=== PATIENT | female | born 1960 | race African-American/Black ===

== ENCOUNTER 2017-05-11 17:05 | Emergency (ER) | payer MEDICAID ==
[~2017-05-11] VITALS: Ht 160 cm; Wt 79.0 kg
[2017-05-11] MEDS ORDERED: ALBUTEROL (0.083%) 2.5MG/3ML NEB HHN STA (18:21)
[2017-05-11 18:25] LABS: CLARITY URINE CLEAR (CLEAR); COLOR URINE YELLOW (YELLOW); KETONES URINE TRACE (NEGATIVE); LEUKOCYTE ESTERASE URINE NEGATIVE (NEGATIVE); NITRITE URINE NEGATIVE (NEGATIVE); OCCULT BLOOD URINE TRACE (NEGATIVE); PH URINE 5.5 (4.5-8.0); PROTEIN URINE NEGATIVE (NEGATIVE); SPECIFIC GRAVITY URINE 1.025 (1.005-1.030)
[2017-05-11 18:42] LABS: BASOPHILS % 0.5 % (0.0-2.0); EOSINOPHILS % 5.7 % (0.0-5.0); HEMATOCRIT. 43.7 % (36.0-48.0); HEMOGLOBIN. 14.8 g/dL (12.0-16.0); LYMPHOCYTES % 27.3 % (20.0-50.0); MEAN CORPUSCULAR HEMOGLOBIN 28.9 pg (28.0-32.0); MEAN CORPUSCULAR VOLUME 85.2 fL (81.0-99.0); MONOCYTES % 8.9 % (2.0-8.0); NEUTROPHILS % 57.6 % (40.0-76.0); PLATELET 269 x1000/uL (130-400); RED BLOOD CELL COUNT 5.13 mill/uL (4.2-5.4); RED CELL DISTRIBUTION WIDTH 13.8 % (11.6-14.6)
[2017-05-11 18:50] LABS: CHLORIDE 103 mEq/L (98-107); PARTIAL THROMBOPLASTIN TIME 26.6 sec (23.4-31.0); PROTHROMBIN TIME 10.7 sec (9.4-11.6)
[2017-05-11 18:52] LABS: CARBON DIOXIDE 31 mEq/L (21-32)
[2017-05-11 18:59] LABS: TROPONIN I < 0.02 ng/mL (0.00-0.04)
[2017-05-11 20:04] VITALS: BP 141/90
== END 2017-05-11 20:03 | disposition home or self-care (01) ==
LOC: ER 18:04 → CANBEDREQ 18:32 → ER 20:03
DX: J40 Bronchitis, not specified as acute or chronic (principal); E87.6 Hypokalemia; E86.0 Dehydration; I10 Essential (primary) hypertension; Z88.2 Allergy status to sulfonamides; Z91.14 Patient's other noncompliance with medication regimen
CPT/HCPCS: 36415; 71010; 80053; 81001; 83605; 83690; 83880; 84484; 85025; 85610; 85730; 87040; 87086; 93005; 94640; 99285; J7611; Z7610

== ENCOUNTER 2018-06-30 09:05 | Emergency (ER) | payer MEDICAID ==
[~2018-06-30] VITALS: Ht 162.6 cm; Wt 81.0 kg
[~2018-06-30 09:05] MED LIST: AMLO5TAB4 PO; ASCO500C15 PO; ATOR20TA PO; FLUT9.9S BOTHNSTRLS; HYDR25TA PO; LORA10TA7 PO; MELO-106 PO; MULT-1146 PO; RANI300T4 PO
[2018-06-30] MEDS ORDERED: ACETAMINOPHEN WITH CODEINE 300/30MG TABLET PO ONE (10:45)
[2018-06-30] MEDS ORDERED: METHOCARBAMOL 500MG TABLET PO ONE (10:45)
[2018-06-30] MEDS ORDERED: KETOROLAC 60MG/2ML VIAL IM ONE (11:45)
[2018-06-30] MEDS ORDERED: ONDANSETRON 4MG ODT PO ONE (11:45)
[2018-06-30 12:08] VITALS: BP 166/99
== END 2018-06-30 12:35 | disposition home or self-care (01) ==
LOC: ER 10:39
DX: S06.0X0A Concussion without loss of consciousness, initial encounter (principal); S13.8XXA Sprain of joints and ligaments of other parts of neck, initial encounter; I10 Essential (primary) hypertension; K21.9 Gastro-esophageal reflux disease without esophagitis; Z90.81 Acquired absence of spleen; Z88.2 Allergy status to sulfonamides; W01.0XXA Fall on same level from slipping, tripping and stumbling without subsequent striking against object, initial encounter; Y93.89 Activity, other specified; Y92.018 Other place in single-family (private) house as the place of occurrence of the external cause
CPT/HCPCS: 70450; 72125; 96372; 99284; J1885; Q0162; Z7610

== ENCOUNTER 2018-10-21 13:17 | Inpatient (IN) | payer MEDICAID ==
[~2018-10-21] VITALS: Ht 160 cm; Wt 79.8 kg
[2018-10-21] MEDS ORDERED: KETOROLAC 30MG/ML VIAL IV STA (14:36)
[2018-10-21] MEDS ORDERED: ONDANSETRON HCL 4MG/2ML INJ IV STA (14:36)
[2018-10-21] MEDS ORDERED: ACETAMINOPHEN 325MG TABLET PO STA (14:36)
[2018-10-21] MEDS ORDERED: SODIUM CHLORIDE 0.9% 1,000 ML IV ONE (14:36)
[2018-10-21 15:47] LABS: PROTHROMBIN TIME 10.3 sec (9.1-11.1)
[2018-10-21 15:48] LABS: CHLORIDE 107 mEq/L (98-107)
[2018-10-21 15:50] LABS: BASOPHILS % 0.3 % (0.0-2.0); EOSINOPHILS % 1.3 % (0.0-5.0); HEMATOCRIT. 40.6 % (36.0-48.0); HEMOGLOBIN. 13.6 g/dL (12.0-16.0); LYMPHOCYTES % 7.1 % (20.0-50.0); MEAN CORPUSCULAR HEMOGLOBIN 28.7 pg (28.0-32.0); MEAN CORPUSCULAR VOLUME 86.1 fL (81.0-99.0); MEAN PLATELET VOLUME 8.3 fl (7.4-10.4); MONOCYTES % 9.6 % (2.0-8.0); NEUTROPHILS % 81.7 % (40.0-76.0); PLATELET 340 x1000/uL (130-400); RED BLOOD CELL COUNT 4.72 mill/uL (4.2-5.4); RED CELL DISTRIBUTION WIDTH 13.8 % (11.6-14.6)
[2018-10-21 15:54] LABS: ETHANOL BLOOD < 10 mg/dL
[2018-10-21] MEDS ORDERED: LEVOFLOXACIN 750MG PREMIX 150 ML IV ONE (16:15)
[2018-10-21 17:10] LABS: PLATELET ESTIMATE NORMAL
[2018-10-21] MEDS ORDERED: IPRATROPIUM/ALBUTEROL 0.5-3(2.5)MG/3ML NEB INH PRN (20:45)
[2018-10-21] MEDS ORDERED: LORAZEPAM 0.5MG TABLET PO PRN (20:45)
[2018-10-21] MEDS ORDERED: DOCUSATE SODIUM 100MG CAPSULE PO PRN (20:45)
[2018-10-21] MEDS: HYDROCODONE/ACETAMINOPHEN 5/325MG TABLET PO PRN (21:18)
[2018-10-22] MEDS: HYDROCODONE/ACETAMINOPHEN 5/325MG TABLET PO PRN ×3 (03:48→15:01)
[2018-10-22] MEDS: ACETAMINOPHEN 325MG TABLET PO PRN ×2 (04:33→05:24)
[2018-10-22 06:43] LABS: HEMATOCRIT. 34.5 % (36.0-48.0); HEMOGLOBIN. 11.6 g/dL (12.0-16.0); MEAN CORPUSCULAR HEMOGLOBIN 28.8 pg (28.0-32.0); MEAN PLATELET VOLUME 7.6 fl (7.4-10.4); PLATELET 287 x1000/uL (130-400); RED BLOOD CELL COUNT 4.01 mill/uL (4.2-5.4); RED CELL DISTRIBUTION WIDTH 13.3 % (11.6-14.6)
[2018-10-22 06:54] LABS: CHLORIDE 110 mEq/L (98-107)
[2018-10-22 07:01] LABS: LDL CHOLESTEROL 104 mg/dL (5-100)
[2018-10-22 07:02] LABS: HDL CHOLESTEROL 40 mg/dL (40-59)
[2018-10-22 07:35] LABS: PLATELET ESTIMATE NORMAL
[2018-10-22] MEDS: CLONIDINE 0.1MG TABLET PO PRN (09:52)
[2018-10-22] MEDS ORDERED: BENZONATATE 100MG CAPSULE PO PRN (15:15)
[2018-10-22 16:57] VITALS: BP 144/78
[2018-10-22] MEDS ORDERED: CEFTRIAXONE 1 G PREMIX 50 ML IV SCH (18:00)
[2018-10-22] MEDS: AZITHROMYCIN 500 MG TABLET PO SCH (19:15)
[2018-10-22 20:00] VITALS: BP 146/86
[2018-10-22] MEDS: FLUTICASONE PROPIONATE 50MCG/SPRAY BOTTLE BOTHNSTRLS SCH (21:50)
[2018-10-23] VITALS: BP 145/81
[2018-10-23 05:31] VITALS: BP 157/80
[2018-10-23 07:58] VITALS: BP 148/88
[2018-10-23] MEDS: AZITHROMYCIN 500 MG TABLET PO SCH (08:21)
[2018-10-23] MEDS: FLUTICASONE PROPIONATE 50MCG/SPRAY BOTTLE BOTHNSTRLS SCH ×2 (08:21→20:03)
[2018-10-23] MEDS: HYDROCODONE/ACETAMINOPHEN 5/325MG TABLET PO PRN ×3 (08:21→20:03)
[2018-10-23 12:00] VITALS: BP 142/87
[2018-10-23] MEDS ORDERED: IBUPROFEN 600MG TABLET PO NR (12:30)
[2018-10-23 16:00] VITALS: BP 150/83
[2018-10-23] MEDS: CEFTRIAXONE 1 G PREMIX 50 ML IV SCH (18:32)
[2018-10-23] MEDS: ONDANSETRON HCL 4MG/2ML INJ IV PRN (19:05)
[2018-10-23 20:00] VITALS: BP 164/97
[2018-10-23] MEDS: CLONIDINE 0.1MG TABLET PO PRN (20:06)
[2018-10-24] VITALS: BP_SYST 110; BP_SYST 135; BP_DIAS 72; BP_DIAS 84
[2018-10-24] MEDS: HYDROCODONE/ACETAMINOPHEN 5/325MG TABLET PO PRN (02:10)
[2018-10-24 04:00] VITALS: BP 128/86
[2018-10-24] MEDS ORDERED: TRAMADOL 50MG TABLET PO PRN (07:15)
[2018-10-24] MEDS ORDERED: HYDROCODONE/APAP 7.5/325MG 1 TAB TABLET PO PRN (07:15)
[2018-10-24 08:00] VITALS: BP 160/99
[2018-10-24] MEDS: ONDANSETRON HCL 4MG/2ML INJ IV PRN (08:43)
[2018-10-24] MEDS: FLUTICASONE PROPIONATE 50MCG/SPRAY BOTTLE BOTHNSTRLS SCH ×2 (08:43→20:50)
[2018-10-24] MEDS: AZITHROMYCIN 500 MG TABLET PO SCH (08:43)
[2018-10-24 12:00] VITALS: BP 139/89
[2018-10-24] MEDS: HYDROCHLOROTHIAZIDE 25MG TABLET PO SCH (16:00)
[2018-10-24] MEDS ORDERED: KETOROLAC 30MG/ML VIAL IV NR (16:00)
[2018-10-24] MEDS ORDERED: METOCLOPRAMIDE HCL 10MG/2ML VIAL IV NR (16:00)
[2018-10-24 16:24] VITALS: BP 153/93
[2018-10-24] MEDS: LORATADINE 10MG TABLET PO SCH (16:38)
[2018-10-24] MEDS: AMLODIPINE 5MG TABLET PO SCH (16:38)
[2018-10-24] MEDS: MULTIVITAMINS,THER W-MINERALS TABLET PO SCH (16:38)
[2018-10-24] MEDS ORDERED: MAGNESIUM 1 G PREMIX 100 ML IV NR (17:00)
[2018-10-24] MEDS: CEFTRIAXONE 1 G PREMIX 50 ML IV SCH (18:42)
[2018-10-24 20:00] VITALS: BP 141/88
[2018-10-24] MEDS: IBUPROFEN 600MG TABLET PO PRN (20:50)
[2018-10-24] MEDS ORDERED: ATORVASTATIN CALCIUM 20MG TABLET PO SCH (21:00)
[2018-10-24] MEDS ORDERED: FLUTICASONE PROPIONATE 50MCG/SPRAY BOTTLE BOTHNSTRLS SCH (21:00)
[2018-10-25] VITALS: BP 134/67
[2018-10-25 04:00] VITALS: BP 118/58
[2018-10-25] MEDS: IBUPROFEN 600MG TABLET PO PRN (04:58)
[2018-10-25 07:26] LABS: HEMATOCRIT. 37.2 % (36.0-48.0); HEMOGLOBIN. 12.5 g/dL (12.0-16.0); MEAN CORPUSCULAR HEMOGLOBIN 28.8 pg (28.0-32.0); MEAN CORPUSCULAR VOLUME 86.1 fL (81.0-99.0); MEAN PLATELET VOLUME 7.1 fl (7.4-10.4); PLATELET 363 x1000/uL (130-400); RED BLOOD CELL COUNT 4.32 mill/uL (4.2-5.4); RED CELL DISTRIBUTION WIDTH 13.5 % (11.6-14.6)
[2018-10-25 07:42] VITALS: BP 147/81
[2018-10-25] MEDS: FLUTICASONE PROPIONATE 50MCG/SPRAY BOTTLE BOTHNSTRLS SCH (08:09)
[2018-10-25] MEDS: AZITHROMYCIN 500 MG TABLET PO SCH (08:10)
[2018-10-25] MEDS: AMLODIPINE 5MG TABLET PO SCH (08:10)
[2018-10-25] MEDS: MULTIVITAMINS,THER W-MINERALS TABLET PO SCH (08:10)
[2018-10-25] MEDS: HYDROCHLOROTHIAZIDE 25MG TABLET PO SCH (08:10)
[2018-10-25] MEDS: LORATADINE 10MG TABLET PO SCH (08:10)
[2018-10-25 08:35] LABS: CHLORIDE 106 mEq/L (98-107)
[2018-10-25 11:04] LABS: PLATELET ESTIMATE NORMAL
[2018-10-25 11:33] VITALS: BP 154/90
[2018-10-25] MEDS ORDERED: BENZ100C86 PO (12:57)
[2018-10-25] MEDS ORDERED: AZIT500T5 PO (12:57)
[2018-10-25 13:11] VITALS: BP 145/90
== END 2018-10-25 16:15 | disposition home or self-care (01) | DRG 720 ==
LOC: ER 13:17 → EDBEDREQTM 16:18 → EDBEDREQ 16:18 → ENRESERV 10-22 16:14 → 8WST 10-22 16:15
PROVIDERS: ADMIT Internal Medicine; ATTEND Internal Medicine
DX: A41.89 Other specified sepsis (principal); J96.00 Acute respiratory failure, unspecified whether with hypoxia or hypercapnia; D72.1 Eosinophilia; I10 Essential (primary) hypertension; B97.89 Other viral agents as the cause of diseases classified elsewhere; K21.9 Gastro-esophageal reflux disease without esophagitis; R19.7 Diarrhea, unspecified; Z90.81 Acquired absence of spleen; Z88.2 Allergy status to sulfonamides; Z79.899 Other long term (current) drug therapy; J12.9 Viral pneumonia, unspecified
CPT/HCPCS: 36415; 70551; 71045; 74176; 80048; 80061; 83036; 83605; 83735; 83880; 84100; 84145; 84443; 84484; 87804; 93005; 96365; 96375; 99291; G0482; J0696; J1885; J1956; J2405; J2765; J3475; J7030; J7050

== ENCOUNTER 2018-11-15 13:24 | Inpatient (IN) | payer MEDICAID ==
[~2018-11-15] VITALS: Ht 162.6 cm; Wt 81.7 kg
[~2018-11-15 13:24] MED LIST changes: +AZIT500T5 PO; +BENZ100C86 PO
[2018-11-15] MEDS ORDERED: SODIUM CHLORIDE 0.9% 1,000 ML IV ONE (14:31)
[2018-11-15 15:31] LABS: BASOPHILS % 0.9 % (0.0-2.0); HEMATOCRIT. 41.4 % (36.0-48.0); HEMOGLOBIN. 13.9 g/dL (12.0-16.0); LYMPHOCYTES % 32.6 % (20.0-50.0); MEAN CORPUSCULAR HEMOGLOBIN 29.4 pg (28.0-32.0); MEAN CORPUSCULAR VOLUME 87.6 fL (81.0-99.0); MEAN PLATELET VOLUME 7.5 fl (7.4-10.4); MONOCYTES % 10.2 % (2.0-8.0); NEUTROPHILS % 48.3 % (40.0-76.0); PLATELET 233 x1000/uL (130-400); RED BLOOD CELL COUNT 4.73 mill/uL (4.2-5.4); RED CELL DISTRIBUTION WIDTH 14.4 % (11.6-14.6)
[2018-11-15 15:35] LABS: CHLORIDE 110 mEq/L (98-107)
[2018-11-15] MEDS ORDERED: CEFTRIAXONE 1 G PREMIX 50 ML IV ONE (17:00)
[2018-11-15] MEDS ORDERED: AZITHROMYCIN 500 MG in DEXT 5% WATER 250 ML IV SCH (17:00)
[2018-11-16] VITALS (7 sets, daily range): BP systolic 128–153; BP diastolic 61–98
[2018-11-16] MEDS ORDERED: AZITHROMYCIN 500 MG in DEXT 5% WATER 250 ML IV SCH (01:15)
[2018-11-16] MEDS ORDERED: CEFTRIAXONE 1 G PREMIX 50 ML IV SCH ×2 (01:15→21:00)
[2018-11-16] MEDS ORDERED: IPRATROPIUM/ALBUTEROL 0.5-3(2.5)MG/3ML NEB HHN PRN (01:15)
[2018-11-16] MEDS: ACETAMINOPHEN 325MG TABLET PO PRN (01:59)
[2018-11-16] MEDS ORDERED: BENZONATATE 100MG CAPSULE PO PRN (02:00)
[2018-11-16] MEDS ORDERED: MEDICATION NOT ON FORMULARY EA (Ranitidine Hcl 300 MG) PO SCH (09:00)
[2018-11-16] MEDS: AMLODIPINE 5MG TABLET PO SCH (10:14)
[2018-11-16] MEDS: ASCORBIC ACID 500 MG TABLET PO SCH (10:14)
[2018-11-16] MEDS: FAMOTIDINE 20MG TABLET PO SCH ×2 (10:14→20:28)
[2018-11-16] MEDS: LORATADINE 10MG TABLET PO SCH (10:14)
[2018-11-16] MEDS: MELOXICAM 7.5MG TABLET PO SCH (10:14)
[2018-11-16] MEDS: FLUTICASONE PROPIONATE 50MCG/SPRAY BOTTLE BOTHNSTRLS SCH (10:15)
[2018-11-16] MEDS: MULTIVITAMINS,THER W-MINERALS TABLET PO SCH (10:19)
[2018-11-16] MEDS: PHENYLEPHRINE/SHK LV/MO/PET,WH RECTAL OINT 28GM PR SCH ×2 (18:01→23:54)
[2018-11-16] MEDS: ATORVASTATIN CALCIUM 20MG TABLET PO SCH (20:28)
[2018-11-16] MEDS: CEFTRIAXONE 1,000 MG in DEXTROSE 5% WATER 50 ML IV SCH (20:28)
[2018-11-16] MEDS: AZITHROMYCIN 500 MG in DEXT 5% WATER 250 ML IV SCH (22:05)
[2018-11-17 00:01] VITALS: BP 135/78
[2018-11-17 03:51] LABS: CLARITY URINE CLOUDY (CLEAR); COLOR URINE YELLOW (YELLOW); KETONES URINE NEGATIVE (NEGATIVE); LEUKOCYTE ESTERASE URINE NEGATIVE (NEGATIVE); NITRITE URINE NEGATIVE (NEGATIVE); OCCULT BLOOD URINE NEGATIVE (NEGATIVE); PROTEIN URINE NEGATIVE (NEGATIVE); SPECIFIC GRAVITY URINE 1.021 (1.005-1.030)
[2018-11-17 04:00] VITALS: BP 114/84
[2018-11-17 04:02] LABS: *AMPHETAMINES SCREEN URINE NEGATIVE (NEGATIVE); *BARBITURATES SCREEN URINE NEGATIVE (NEGATIVE); *BENZODIAZEPINES SCREEN URINE NEGATIVE (NEGATIVE); *COCAINE SCREEN URINE NEGATIVE (NEGATIVE); METHADONE URINE SCREEN NEGATIVE (NEGATIVE)
[2018-11-17 04:03] LABS: CANNABINOID URINE SCREEN NEGATIVE (NEGATIVE); OPIATES URINE SCREEN NEGATIVE (NEGATIVE); PHENCYCLIDINE URINE SCREEN NEGATIVE (NEGATIVE)
[2018-11-17 05:52] LABS: EOSINOPHILS % 8.1 % (0.0-5.0); HEMATOCRIT. 35.4 % (36.0-48.0); LYMPHOCYTES % 32.2 % (20.0-50.0); MEAN CORPUSCULAR HEMOGLOBIN 29.5 pg (28.0-32.0); MEAN CORPUSCULAR VOLUME 87.2 fL (81.0-99.0); MEAN PLATELET VOLUME 7.9 fl (7.4-10.4); MONOCYTES % 10.4 % (2.0-8.0); NEUTROPHILS % 48.3 % (40.0-76.0); PLATELET 193 x1000/uL (130-400); RED BLOOD CELL COUNT 4.06 mill/uL (4.2-5.4); RED CELL DISTRIBUTION WIDTH 14.3 % (11.6-14.6)
[2018-11-17 05:58] LABS: CHLORIDE 108 mEq/L (98-107)
[2018-11-17] MEDS: PHENYLEPHRINE/SHK LV/MO/PET,WH RECTAL OINT 28GM PR SCH ×4 (06:44→23:38)
[2018-11-17 08:00] VITALS: BP 146/82
[2018-11-17] MEDS: FAMOTIDINE 20MG TABLET PO SCH ×2 (09:27→21:03)
[2018-11-17] MEDS: ACETAMINOPHEN 325MG TABLET PO PRN (09:28)
[2018-11-17] MEDS: MELOXICAM 7.5MG TABLET PO SCH (09:29)
[2018-11-17] MEDS: LORATADINE 10MG TABLET PO SCH (09:30)
[2018-11-17] MEDS: MULTIVITAMINS,THER W-MINERALS TABLET PO SCH (09:31)
[2018-11-17] MEDS: AMLODIPINE 5MG TABLET PO SCH (09:31)
[2018-11-17] MEDS: ASCORBIC ACID 500 MG TABLET PO SCH (09:31)
[2018-11-17] MEDS: FLUTICASONE PROPIONATE 50MCG/SPRAY BOTTLE BOTHNSTRLS SCH (09:32)
[2018-11-17 12:00] VITALS: BP 163/92
[2018-11-17 16:00] VITALS: BP 159/96
[2018-11-17 20:00] VITALS: BP 159/90
[2018-11-17] MEDS: CEFTRIAXONE 1,000 MG in DEXTROSE 5% WATER 50 ML IV SCH (21:03)
[2018-11-17] MEDS: ATORVASTATIN CALCIUM 20MG TABLET PO SCH (21:03)
[2018-11-17] MEDS: AZITHROMYCIN 500 MG in DEXT 5% WATER 250 ML IV SCH (22:06)
[2018-11-18] VITALS: BP 136/78
[2018-11-18 04:00] VITALS: BP 127/86
[2018-11-18] MEDS: PHENYLEPHRINE/SHK LV/MO/PET,WH RECTAL OINT 28GM PR SCH ×2 (05:21→12:00)
[2018-11-18 08:00] VITALS: BP 147/90
[2018-11-18] MEDS: LORATADINE 10MG TABLET PO SCH (09:57)
[2018-11-18] MEDS: MULTIVITAMINS,THER W-MINERALS TABLET PO SCH (09:57)
[2018-11-18] MEDS: FLUTICASONE PROPIONATE 50MCG/SPRAY BOTTLE BOTHNSTRLS SCH (09:57)
[2018-11-18] MEDS: MELOXICAM 7.5MG TABLET PO SCH (09:57)
[2018-11-18] MEDS: ASCORBIC ACID 500 MG TABLET PO SCH (09:57)
[2018-11-18] MEDS: AMLODIPINE 5MG TABLET PO SCH (09:57)
[2018-11-18] MEDS: FAMOTIDINE 20MG TABLET PO SCH (09:58)
[2018-11-18 12:00] VITALS: BP 146/81
[2018-11-18] MEDS ORDERED: CLONIDINE 0.1MG TABLET PO SCH (12:30)
[2018-11-18 13:19] VITALS: BP 146/81
[2018-11-19] MEDS ORDERED: AZITHROMYCIN 500 MG TABLET PO SCH (21:00)
== END 2018-11-18 14:15 | disposition home or self-care (01) | DRG 720 ==
LOC: ER 13:24 → 8WST 19:11 → EDBEDREQTM 19:13 → EDBEDREQ 19:13 → ENRESERV 23:53
PROVIDERS: ADMIT Internal Medicine; ATTEND Internal Medicine
DX: A41.9 Sepsis, unspecified organism (principal); J18.9 Pneumonia, unspecified organism; D72.1 Eosinophilia; E87.8 Other disorders of electrolyte and fluid balance, not elsewhere classified; E66.9 Obesity, unspecified; E78.5 Hyperlipidemia, unspecified; I10 Essential (primary) hypertension; J98.11 Atelectasis; Z90.81 Acquired absence of spleen; Z79.51 Long term (current) use of inhaled steroids; Z79.899 Other long term (current) drug therapy; Z71.3 Dietary counseling and surveillance; Z88.2 Allergy status to sulfonamides
CPT/HCPCS: 36415; 71045; 71250; 80048; 80305; 87804; 93005; 93970; 96374; 96375; 99285; J0456; J0696; J7030; J7040; J7060

== ENCOUNTER 2019-01-27 13:40 | Emergency (ER) | payer MEDICAID ==
[~2019-01-27] VITALS: Ht 162.6 cm; Wt 79.0 kg
[2019-01-27] MEDS ORDERED: ALBUTEROL (0.083%) 2.5MG/3ML NEB HHN STA (15:51)
[2019-01-27 16:01] LABS: BASOPHILS % 0.8 % (0.0-2.0); EOSINOPHILS % 3.1 % (0.0-5.0); HEMOGLOBIN. 13.5 g/dL (12.0-16.0); LYMPHOCYTES % 27.1 % (20.0-50.0); MEAN CORPUSCULAR HEMOGLOBIN 28.7 pg (28.0-32.0); MEAN CORPUSCULAR VOLUME 87.3 fL (81.0-99.0); MEAN PLATELET VOLUME 7.8 fl (7.4-10.4); MONOCYTES % 9.9 % (2.0-8.0); NEUTROPHILS % 59.1 % (40.0-76.0); PLATELET 262 x1000/uL (130-400); RED CELL DISTRIBUTION WIDTH 14.3 % (11.6-14.6)
[2019-01-27 16:02] LABS: CHLORIDE 110 mEq/L (98-107)
[2019-01-27 16:04] LABS: PARTIAL THROMBOPLASTIN TIME 26.4 sec (23.4-31.0)
[2019-01-27 16:05] LABS: ETHANOL BLOOD < 10 mg/dL
[2019-01-27 16:23] LABS: CLARITY URINE CLEAR (CLEAR); COLOR URINE YELLOW (YELLOW); KETONES URINE NEGATIVE (NEGATIVE); LEUKOCYTE ESTERASE URINE NEGATIVE (NEGATIVE); NITRITE URINE NEGATIVE (NEGATIVE); OCCULT BLOOD URINE NEGATIVE (NEGATIVE); PROTEIN URINE NEGATIVE (NEGATIVE); SPECIFIC GRAVITY URINE 1.019 (1.005-1.030); UROBILINOGEN URINE 0.2 E.U./dL (0.2-1.0)
[2019-01-27 16:49] LABS: *BARBITURATES SCREEN URINE NEGATIVE (NEGATIVE)
[2019-01-27 16:50] LABS: *AMPHETAMINES SCREEN URINE NEGATIVE (NEGATIVE); *BENZODIAZEPINES SCREEN URINE NEGATIVE (NEGATIVE); *COCAINE SCREEN URINE NEGATIVE (NEGATIVE); METHADONE URINE SCREEN NEGATIVE (NEGATIVE); PHENCYCLIDINE URINE SCREEN NEGATIVE (NEGATIVE)
[2019-01-27 16:51] LABS: OPIATES URINE SCREEN NEGATIVE (NEGATIVE)
[2019-01-27 16:53] LABS: CANNABINOID URINE SCREEN NEGATIVE (NEGATIVE)
[2019-01-27 18:00] VITALS: BP 147/88
[2019-01-27] MEDS ORDERED: MECLIZINE 25MG TABLET PO ONE (18:15)
[2019-01-27] MEDS ORDERED: DEXAMETHASONE 10 MG/ML VIAL IV ONE (18:15)
== END 2019-01-27 19:19 | disposition home or self-care (01) ==
LOC: ER 13:40
DX: J20.9 Acute bronchitis, unspecified (principal); R42 Dizziness and giddiness; E78.5 Hyperlipidemia, unspecified; I10 Essential (primary) hypertension; Z90.81 Acquired absence of spleen; Z79.899 Other long term (current) drug therapy; Z88.2 Allergy status to sulfonamides; Z88.8 Allergy status to other drugs, medicaments and biological substances
CPT/HCPCS: 36415; 70450; 71045; 80053; 80305; 80320; 81003; 83690; 83880; 84484; 85025; 85610; 85730; 93005; 94640; 96374; 99284; J1100; J7611; J8597; Z7610; G0480

== ENCOUNTER 2019-05-23 12:20 | Emergency (ER) | payer MEDICAID ==
[~2019-05-23] VITALS: Ht 162.6 cm; Wt 83.0 kg
[2019-05-23 13:41] VITALS: BP 184/105
[2019-05-23] MEDS ORDERED: ONDANSETRON 4MG ODT PO ONE (13:45)
[2019-05-23] MEDS ORDERED: HYDROCODONE/ACETAMINOPHEN 5/325MG TABLET PO ONE (13:45)
== END 2019-05-23 14:11 | disposition home or self-care (01) ==
LOC: ER 12:20
DX: R51 Headache (principal); I10 Essential (primary) hypertension; E78.00 Pure hypercholesterolemia, unspecified; Z88.2 Allergy status to sulfonamides; Z90.81 Acquired absence of spleen
CPT/HCPCS: 70450; 99284; Q0162

== ENCOUNTER 2019-08-09 11:37 | Emergency (ER) | payer MEDICAID ==
[~2019-08-09] VITALS: Ht 162.6 cm; Wt 84.0 kg
[2019-08-09] MEDS ORDERED: PREDNISONE 20MG TABLET PO ONE (15:30)
[2019-08-09] MEDS ORDERED: ALBUTEROL (0.083%) 2.5MG/3ML NEB HHN ONE (15:30)
[2019-08-09 18:00] VITALS: BP 140/81
== END 2019-08-09 18:00 | disposition home or self-care (01) ==
LOC: ER 11:37
DX: J40 Bronchitis, not specified as acute or chronic (principal); I10 Essential (primary) hypertension; Z90.81 Acquired absence of spleen; Z79.899 Other long term (current) drug therapy; Z88.2 Allergy status to sulfonamides
CPT/HCPCS: 71046; 94640; 99283; J7512; J7611; Z7610

== ENCOUNTER 2019-08-20 11:19 | Emergency (ER) | payer MEDICAID, OTHER ==
[~2019-08-20] VITALS: Ht 167.6 cm; Wt 82.0 kg
[2019-08-20] MEDS ORDERED: DIPHENHYDRAMINE 50MG/ML VIAL IM ONE (12:00)
[2019-08-20] MEDS ORDERED: FAMOTIDINE 20MG TABLET PO ONE (12:00)
[2019-08-20] MEDS ORDERED: DEXAMETHASONE 10 MG/ML VIAL IM ONE (12:00)
[2019-08-20 13:35] VITALS: BP 147/89
== END 2019-08-20 13:37 | disposition home or self-care (01) ==
LOC: ER 11:19
DX: T78.40XA Allergy, unspecified, initial encounter (principal); L50.9 Urticaria, unspecified; I10 Essential (primary) hypertension; E78.00 Pure hypercholesterolemia, unspecified; R10.13 Epigastric pain; Z90.81 Acquired absence of spleen; Z88.2 Allergy status to sulfonamides; Z79.899 Other long term (current) drug therapy
CPT/HCPCS: 96372; 99283; J1100; J1200

== ENCOUNTER 2019-11-07 12:58 | Emergency (ER) | payer MEDICAID ==
[~2019-11-07] VITALS: Ht 167.6 cm; Wt 88.9 kg
[~2019-11-07 12:58] MED LIST changes: -AZIT500T5 PO; +AZIT500T8 PO
[2019-11-07 15:41] LABS: BASOPHILS % 0.7 % (0.0-2.0); EOSINOPHILS % 4.3 % (0.0-5.0); HEMATOCRIT. 41.6 % (36.0-48.0); HEMOGLOBIN. 14.2 g/dL (12.0-16.0); LYMPHOCYTES % 23.2 % (20.0-50.0); MEAN CORPUSCULAR HEMOGLOBIN 29.6 pg (28.0-32.0); MEAN CORPUSCULAR VOLUME 86.5 fL (81.0-99.0); MEAN PLATELET VOLUME 7.8 fl (7.4-10.4); MONOCYTES % 9.3 % (2.0-8.0); NEUTROPHILS % 62.5 % (40.0-76.0); PLATELET 292 x1000/uL (130-400); RED BLOOD CELL COUNT 4.81 mill/uL (4.2-5.4); RED CELL DISTRIBUTION WIDTH 14.5 % (11.6-14.6)
[2019-11-07 15:46] LABS: CHLORIDE 108 mEq/L (98-107)
[2019-11-07 19:00] VITALS: BP 155/88
== END 2019-11-07 19:05 | disposition home or self-care (01) ==
LOC: ER 12:58
DX: R05 Cough (principal); R06.02 Shortness of breath; I10 Essential (primary) hypertension; F17.210 Nicotine dependence, cigarettes, uncomplicated; J32.9 Chronic sinusitis, unspecified; Z98.890 Other specified postprocedural states; Z88.2 Allergy status to sulfonamides; Z71.6 Tobacco abuse counseling
CPT/HCPCS: 36415; 71045; 80053; 83880; 84484; 85025; 99284; 99406

== ENCOUNTER 2022-01-01 09:00 | Emergency (ER) | payer MEDICAID, OTHER ==
[~2022-01-01] VITALS: Ht 162.6 cm; Wt 83.0 kg
[2022-01-01] MEDS ORDERED: FAMOTIDINE 20MG TABLET PO ONE (12:00)
[2022-01-01] MEDS ORDERED: MAGNESIUM/ALUMINUM HYDROXIDE/SIMETHICONE 30ML UDC PO ONE (12:00)
[2022-01-01 12:43] LABS: EOSINOPHILS % 5.4 % (0.0-5.0); HEMATOCRIT. 43.7 % (36.0-48.0); HEMOGLOBIN. 14.7 g/dL (12.0-16.0); LYMPHOCYTES % 29.6 % (20.0-50.0); MEAN CORPUSCULAR HEMOGLOBIN 29.4 pg (28.0-32.0); MEAN CORPUSCULAR VOLUME 87.6 fL (81.0-99.0); MEAN PLATELET VOLUME 7.7 fl (7.4-10.4); MONOCYTES % 8.4 % (2.0-8.0); NEUTROPHILS % 55.6 % (40.0-76.0); PLATELET 150 x1000/uL (130-400); RED BLOOD CELL COUNT 4.99 mill/uL (4.2-5.4); RED CELL DISTRIBUTION WIDTH 14.5 % (11.6-14.6)
[2022-01-01 12:47] LABS: CHLORIDE 110 mEq/L (98-107)
[2022-01-01] MEDS ORDERED: CLAR-44 MT (14:04)
[2022-01-01] MEDS ORDERED: AMOX-494 MT (14:04)
[2022-01-01] MEDS ORDERED: PROT40 MT (14:04)
[2022-01-01 15:10] VITALS: BP 152/79
== END 2022-01-01 15:11 | disposition home or self-care (01) ==
LOC: ER 09:10
DX: R10.13 Epigastric pain (principal); I10 Essential (primary) hypertension; Z90.81 Acquired absence of spleen; Z88.2 Allergy status to sulfonamides
CPT/HCPCS: 36415; 76705; 80053; 85025; 99284

== ENCOUNTER 2022-03-28 02:36 | Emergency (ER) | payer OTHER ==
[~2022-03-28] VITALS: Ht 162.6 cm; Wt 79.0 kg
[~2022-03-28 02:36] MED LIST changes: +AMOX-494 MT; +CLAR-44 MT; +PROT40 MT
[2022-03-28] MEDS ORDERED: KETOROLAC 30MG/ML VIAL IV STA (05:30)
[2022-03-28] MEDS ORDERED: SODIUM CHLORIDE 0.9% 1,000 ML IV ONE (05:30)
[2022-03-28] MEDS ORDERED: AMLODIPINE 10MG TABLET PO ONE (05:30)
[2022-03-28 05:49] LABS: BASOPHILS % 0.7 % (0.0-2.0); EOSINOPHILS % 5.5 % (0.0-5.0); HEMOGLOBIN. 12.9 g/dL (12.0-16.0); LYMPHOCYTES % 22.3 % (20.0-50.0); MEAN CORPUSCULAR HEMOGLOBIN 28.7 pg (28.0-32.0); MEAN CORPUSCULAR VOLUME 86.9 fL (81.0-99.0); MEAN PLATELET VOLUME 7.7 fl (7.4-10.4); MONOCYTES % 10.8 % (2.0-8.0); NEUTROPHILS % 60.7 % (40.0-76.0); PLATELET 230 x1000/uL (130-400); RED BLOOD CELL COUNT 4.49 mill/uL (4.2-5.4); RED CELL DISTRIBUTION WIDTH 14.3 % (11.6-14.6)
[2022-03-28 06:08] LABS: CHLORIDE 110 mEq/L (98-107)
[2022-03-28 10:00] VITALS: BP 181/100
== END 2022-03-28 10:01 | disposition home or self-care (01) ==
LOC: ER 02:36
DX: B34.9 Viral infection, unspecified (principal); Z20.822 Contact with and (suspected) exposure to COVID-19; I10 Essential (primary) hypertension
CPT/HCPCS: 36415; 71045; 80053; 84484; 85025; 87426; 93005; 96361; 96374; 99285; C9803; J1885; J7030

== ENCOUNTER 2023-01-05 11:33 | Emergency (ER) | payer MEDICAID, OTHER ==
[~2023-01-05] VITALS: Ht 162.6 cm; Wt 73.0 kg
[2023-01-05] MEDS ORDERED: HYDROCODONE/ACETAMINOPHEN 5/325MG TABLET PO ONE (13:15)
[2023-01-05 13:24] VITALS: BP 124/76
[2023-01-05] MEDS ORDERED: IBUP-2029 MT (13:30)
[2023-01-05] MEDS ORDERED: T3 PO ×2 (13:30)
[2023-01-05] MEDS ORDERED: HYDR-4001 MT (15:10)
== END 2023-01-05 13:49 | disposition home or self-care (01) ==
LOC: ER 12:06
DX: S92.351A Displaced fracture of fifth metatarsal bone, right foot, initial encounter for closed fracture (principal); I10 Essential (primary) hypertension; Z88.2 Allergy status to sulfonamides; W19.XXXA Unspecified fall, initial encounter; Y93.89 Activity, other specified; Y92.89 Other specified places as the place of occurrence of the external cause; Y99.8 Other external cause status
CPT/HCPCS: 73630; 99283

== ENCOUNTER 2023-01-23 12:15 | Emergency (ER) | payer MEDICAID, OTHER ==
[~2023-01-23] VITALS: Ht 162.6 cm; Wt 74.0 kg
[~2023-01-23 12:15] MED LIST changes: +HYDR-4001 MT; +IBUP-2029 MT
[2023-01-23 12:31] VITALS: BP 143/97
[2023-01-23] MEDS ORDERED: NAPR220C61 MT (12:52)
[2023-01-23] MEDS ORDERED: ACET-2708 MT (12:56)
[2023-01-23] MEDS ORDERED: IBUPROFEN 400MG TABLET PO ONE (13:15)
[2023-01-23] MEDS ORDERED: ACETAMINOPHEN 325MG TABLET PO ONE (13:15)
== END 2023-01-23 13:50 | disposition home or self-care (01) ==
LOC: ER 13:31
DX: Z00.00 Encounter for general adult medical examination without abnormal findings (principal); I10 Essential (primary) hypertension; Z76.0 Encounter for issue of repeat prescription
CPT/HCPCS: 99281; Z7610; 99282

== ENCOUNTER 2023-10-06 13:32 | Emergency (ER) | payer MEDICAID, OTHER ==
[~2023-10-06] VITALS: Ht 167.6 cm; Wt 91.0 kg
[~2023-10-06 13:32] MED LIST changes: +ACET-2708 MT; +NAPR220C61 MT
[2023-10-06 13:53] VITALS: BP 187/100; PULSE 103; RESP 16; TEMP 98.5; O2SAT 99
[2023-10-06 15:15] LABS: BASOPHILS % 0.7 % (0.0-2.0); EOSINOPHILS % 2.3 % (0.0-5.0); HEMATOCRIT. 43.8 % (36.0-48.0); HEMOGLOBIN. 14.2 g/dL (12.0-16.0); LYMPHOCYTES % 24.4 % (20.0-50.0); MEAN CORPUSCULAR HGB CONC 32.4 g/dL (31.0-37.0); MEAN CORPUSCULAR VOLUME 89.6 fL (81.0-99.0); MONOCYTES % 8.2 % (2.0-8.0); NEUTROPHILS % 64.4 % (40.0-76.0); PLATELET 244 x1000/uL (130-400); RED BLOOD CELL COUNT 4.89 mill/uL (4.2-5.4); RED CELL DISTRIBUTION WIDTH 14.3 % (11.6-14.6); WHITE BLOOD COUNT 7.8 x1000/uL (4.5-11.0)
[2023-10-06 15:21] LABS: PROTHROMBIN TIME 10.6 sec (9.6-11.0)
[2023-10-06 15:26] LABS: ALANINE AMINOTRANSFERASE 12 IU/L (10-49); ALBUMIN 4.2 g/dL (3.2-4.8); ASPARTATE AMINOTRANSFERASE 20 IU/L (<34); BILIRUBIN TOTAL 0.4 mg/dL (0.1-1.0); CALCIUM 9.9 mg/dL (8.7-10.4); CARBON DIOXIDE 25 mEq/L (21-32); CHLORIDE 110 mEq/L (98-107); CREATININE 1.1 mg/dL (0.6-1.0); GLUCOSE 86 mg/dL (70-105); POTASSIUM 4.6 mEq/L (3.5-5.1); PROTEIN TOTAL 7.3 g/dL (6.0-8.3); SODIUM 140 mEq/L (136-145); TROPONIN I HIGH SENSITIVITY 24 ng/L (3.0-34); UREA NITROGEN BLOOD 18 mg/dL (9-23)
== END 2023-10-06 19:05 | disposition left against medical advice (07) ==
LOC: ER 13:32
DX: R06.02 Shortness of breath (principal); R05.9 Cough, unspecified; I10 Essential (primary) hypertension; Z87.01 Personal history of pneumonia (recurrent); Z79.899 Other long term (current) drug therapy
CPT/HCPCS: 36415; 71045; 80053; 83880; 84484; 85025; 93005; 99285

== ENCOUNTER 2024-01-08 20:09 | Emergency (ER) | payer SELFPAY ==
[~2024-01-08] VITALS: Ht 162.6 cm; Wt 71.0 kg
[2024-01-08 20:27] VITALS: BP 166/102; RESP 14; TEMP 98.7; O2SAT 98
[2024-01-08 20:29] VITALS: PULSE 87
== END 2024-01-08 23:28 | disposition left against medical advice (07) ==
LOC: ER 20:09
DX: R21 Rash and other nonspecific skin eruption (principal); Z53.21 Procedure and treatment not carried out due to patient leaving prior to being seen by health care provider
CPT/HCPCS: 99281

== ENCOUNTER 2024-01-10 00:40 | Emergency (ER) | payer SELFPAY ==
[~2024-01-10] VITALS: Ht 162.6 cm; Wt 73.0 kg
[2024-01-10 00:55] VITALS: O2SAT 97
[2024-01-10] MEDS ORDERED: VALA100044 PO (05:21)
[2024-01-10] MEDS ORDERED: TOPUD PO (05:21)
[2024-01-10 05:44] VITALS: BP 142/74; PULSE 78; RESP 16; TEMP 98.1
== END 2024-01-10 05:54 | disposition home or self-care (01) ==
LOC: ER 00:40
DX: B02.9 Zoster without complications (principal); B34.9 Viral infection, unspecified; Z98.890 Other specified postprocedural states; Z88.2 Allergy status to sulfonamides
CPT/HCPCS: 99283